=== PATIENT | female | born 1935 | race Caucasian/White ===

== ENCOUNTER 2018-05-29 12:47 | Emergency (ER) | payer MEDICARE, OTHER ==
[~2018-05-29] VITALS: Ht 162.6 cm; Wt 46.7 kg
[~2018-05-29 12:47] MED LIST: ALBUTEROL2.5 MG/3 M INH; HYDROCODON-ACE1 EA11 PO
[2018-05-29] MEDS ORDERED: METOPROLOL SUCC25 MG PO (13:08)
[2018-05-29] MEDS ORDERED: NORCO 5-325 TA1 EACH PO (17:08)
--- NOTE | 2018-05-29 21:05 | EKG ---
[facility] [address] [facility] [place] [address] Signed Normal sinus rhythm Possible Left atrial enlargement Right bundle branch block Abnormal ECG No previous ECGs available Confirmed by FRANCA MURPHY MD ([id number]) on 05/29/2018 9:05:47 PM Electronically Signed By: FRANCA MURPHY MD 05/29/18 2105 PATIENT NAME: VALENTINE GAY Electrocardiogram DATE OF : 33 PHYSICIAN: FRANCA MURPHY MD REPORT #: [id number] REPORT IS CONFIDENTIAL AND NOT TO BE RELEASED WITHOUT AUTHORIZATION
== END 2018-05-29 17:50 | disposition home or self-care (01) ==
LOC: ED 12:47
PROC: 0T9B70Z Drainage of Bladder with Drainage Device, Via Natural or Artificial Opening (ICD-10-PCS; principal; 2018-05-29)
PROC: BT40ZZZ Ultrasonography of Bladder (ICD-10-PCS; principal; 2018-05-29)
DX: S46.911A Strain of unspecified muscle, fascia and tendon at shoulder and upper arm level, right arm, initial encounter (principal); R74.8 Abnormal levels of other serum enzymes; I10 Essential (primary) hypertension; J44.9 Chronic obstructive pulmonary disease, unspecified; Z87.891 Personal history of nicotine dependence; Z88.5 Allergy status to narcotic agent; Z88.8 Allergy status to other drugs, medicaments and biological substances; Z79.899 Other long term (current) drug therapy; W07.XXXA Fall from chair, initial encounter
CPT/HCPCS: 51701; 51798; 73030; 80053; 81001; 82550; 83735; 84484; 85025; 93005; 93010; 96360; 96361; 99284-25; J7040

== ENCOUNTER 2019-08-10 16:55 | Emergency (ER) | payer MEDICARE, OTHER ==
[~2019-08-10] VITALS: Ht 162.6 cm; Wt 46.7 kg
[~2019-08-10 16:55] MED LIST changes: +METOPROLOL SUCC25 MG PO; +NORCO 5-325 TA1 EACH PO
== END 2019-08-10 19:09 | disposition home or self-care (01) ==
LOC: ED 16:55
DX: M54.5 Low back pain (principal); J44.9 Chronic obstructive pulmonary disease, unspecified; I10 Essential (primary) hypertension; Z87.891 Personal history of nicotine dependence; Z90.89 Acquired absence of other organs; Z88.5 Allergy status to narcotic agent; Z88.8 Allergy status to other drugs, medicaments and biological substances; W19.XXXA Unspecified fall, initial encounter
CPT/HCPCS: 72131; 72192; 99284-25

== ENCOUNTER 2020-05-31 13:34 | Emergency (ER) | payer MEDICARE, OTHER ==
[~2020-05-31] VITALS: Ht 162.6 cm; Wt 46.7 kg
[2020-05-31] MEDS ORDERED: PREDNISONE20 MG PO (17:23)
--- NOTE | 2020-05-31 22:23 | EKG ---
[facility] [address] [facility] [place] [address] Signed Sinus rhythm with short [place] Right bundle branch block Abnormal ECG When compared with ECG of 29-MAY-2018 13:37, T wave inversion no longer evident in Anterior leads Confirmed by FRANCA MURPHY MD ([id number]) on 05/31/2020 10:23:17 PM Electronically Signed By: FRANCA MURPHY MD 05/31/20 2223 PATIENT NAME: VALENTINE GAY Electrocardiogram DATE OF : 33 PHYSICIAN: FRANCA MURPHY MD REPORT #: [id number] REPORT IS CONFIDENTIAL AND NOT TO BE RELEASED WITHOUT AUTHORIZATION
== END 2020-05-31 18:55 | disposition home or self-care (01) ==
LOC: ED 13:34
DX: J44.1 Chronic obstructive pulmonary disease with (acute) exacerbation (principal); R53.1 Weakness; I10 Essential (primary) hypertension; Z20.822 Contact with and (suspected) exposure to COVID-19; Z87.891 Personal history of nicotine dependence; Z88.5 Allergy status to narcotic agent; Z88.8 Allergy status to other drugs, medicaments and biological substances; Z79.899 Other long term (current) drug therapy
CPT/HCPCS: 71045; 80053; 81001; 83735; 84484; 85025; 93005; 93010; 94640; 96374; 99285-25; C9803; J2930; U0003

== ENCOUNTER 2020-09-14 13:07 | Emergency (ER) | payer MEDICARE, OTHER ==
[~2020-09-14] VITALS: Ht 162.6 cm; Wt 46.7 kg
[~2020-09-14 13:07] MED LIST changes: +PREDNISONE20 MG PO
[2020-09-14] MEDS ORDERED: PULMICORT0.5 MG/2 M INH (13:34)
[2020-09-14] MEDS ORDERED: AUGMENTIN 875-1 EACH PO (17:38)
[2020-09-14] MEDS ORDERED: PREDNISONE20 MG PO (17:38)
[2020-09-14] MEDS ORDERED: HYDROCODON-ACE1 EA10 PO (17:38)
--- NOTE | 2020-09-15 16:33 | EKG ---
[facility] [address] [facility] [place] [address] Signed Sinus rhythm with short [place] with occasional premature ventricular complexes Right bundle branch block Abnormal ECG When compared with ECG of 31-MAY-2020 14:03, premature ventricular complexes are now present T wave inversion now evident in Anterior leads Confirmed by DEMARCUS PEARCE DO ([id number]) on 09/15/2020 4:33:30 PM Electronically Signed By: DEMARCUS PEARCE DO 09/15/20 1633 PATIENT NAME: DAVID GAYElin LAND Electrocardiogram DATE OF : 33 PHYSICIAN: DEMARCUS PEARCE DO REPORT #: [id number] REPORT IS CONFIDENTIAL AND NOT TO BE RELEASED WITHOUT AUTHORIZATION
== END 2020-09-14 20:22 | disposition home or self-care (01) ==
LOC: ED 13:07
DX: S22.059A Unspecified fracture of T5-T6 vertebra, initial encounter for closed fracture (principal); S22.069A Unspecified fracture of T7-T8 vertebra, initial encounter for closed fracture; J44.0 Chronic obstructive pulmonary disease with (acute) lower respiratory infection; J18.9 Pneumonia, unspecified organism; J44.1 Chronic obstructive pulmonary disease with (acute) exacerbation; W18.30XA Fall on same level, unspecified, initial encounter; I10 Essential (primary) hypertension; Z87.891 Personal history of nicotine dependence; Z88.5 Allergy status to narcotic agent; Z88.8 Allergy status to other drugs, medicaments and biological substances; Z79.899 Other long term (current) drug therapy
CPT/HCPCS: 71045; 71260; 80053; 82803; 83605; 83880; 84484; 85025; 85379; 93005; 93010; 94640; 99284-25; J2930; J3010; Q9967; U0003